=== PATIENT | female | born 1990 | race Hispanic/Latino ===

== ENCOUNTER 2020-01-13 06:20 | Emergency (ER) | payer OTHER ==
[2020-01-13] MEDS ORDERED: IBUPROFEN 200 MG TAB PO ONE (07:02)
[2020-01-13] MEDS ORDERED: IBUPROFEN 400 MG TAB ONE (07:03)
[2020-01-13 07:38] LABS: Urine Blood TRACE (NEG); Urine Glucose NEGATIVE (NEG); Urine Protein 1+ (NEG); Urine Specific Gravity >1.030 (1.005-1.030)
--- NOTE | 2020-01-13 08:13 | EDPHYS ---
Physician Documentation [facility] Name: Ramona Sanchez Age: 29 yrs Sex: Female : 1990 Arrival Date: 01/13/2020 Time: 06:26 Bed 17 Private MD: CHANTELLE Physician Abdirahman Martins HPI: 01/12 07:00 This 29 yrs old Female presents to ER via Ambulatory with complaints of Sore cp Throat, Headache, Fever. 07:00 The patient presents with sore throat. Onset: The symptoms/episode began/occurred cp yesterday. Associated signs and symptoms: Pertinent positives: flu-like symptoms, myalgias, headache, Pertinent negatives chest pain, cough, diarrhea, vomiting, abdominal pain. Historical: - Allergies: 06:37 No Known Allergies; sg - PMHx: 06:37 Seasonal Allergies; sg - PSHx: 06:37 D \T\ C; sg - Immunization history:: Adult Immunizations not up to date. - Social history:: Smoking status: Patient denies any tobacco usage or history of. ROS: 07:01 Eyes: Negative for injury, pain, redness, and discharge. cp 07:01 Constitutional: Positive for body aches, fever, Negative for poor PO intake. 07:01 ENT: Positive for sore throat, Negative for ear pain, difficulty swallowing, difficulty handling secretions. 07:01 Cardiovascular: Negative for chest pain. 07:01 Respiratory: Negative for cough, shortness of breath, wheezing. 07:01 Abdomen/GI: Negative for abdominal pain, nausea, vomiting, and diarrhea. 07:01 Neuro: Positive for headache, Negative for altered mental status, weakness. 07:01 All other systems are negative. Exam: 07:02 Head/Face: Normocephalic, atraumatic. cp 07:02 Constitutional: The patient appears in no acute distress, alert, awake, non-toxic, well developed, well nourished, febrile. 07:02 Eyes: Periorbital structures: appear normal, Conjunctiva: normal, no exudate, no injection, Lids and lashes: appear normal, bilaterally. 07:02 ENT: External ear(s): are unremarkable, Nose: is normal, Mouth: Lips: moist, Oral mucosa: moist, Posterior pharynx: Airway: no evidence of obstruction, patent, Tonsils: with erythema, no enlargement, no exudate, swelling, is not appreciated, erythema, that is mild, exudate, is not appreciated. 07:02 Neck: ROM/movement: is normal, is supple, no meningismus, no nuchal rigidity, Lymph nodes: no appreciated lymphadenopathy. 07:02 Chest/axilla: Inspection: normal, Palpation: is normal, no crepitus, no tenderness. 07:02 Cardiovascular: Rate: normal, Rhythm: regular. 07:02 Respiratory: the patient does not display signs of respiratory distress, Respirations: normal, no use of accessory muscles, no retractions, labored breathing, is not present, Breath sounds: are clear throughout, no decreased breath sounds, no stridor, no wheezing. 07:02 Abdomen/GI: Exam negative for discomfort, distension, guarding, Inspection: abdomen appears normal. Vital Signs: 06:39 BP 113 / 83; Pulse 96; Resp 18; Temp 100.8(O); Pulse Ox 99% on R/A; Pain 6/10; ch2 07:20 Temp 99.1; jl7 MDM: 06:36 Patient medically screened. cp 07:04 Differential diagnosis: epiglottitis, group A strep tonsillitis, influenza, cp peritonsillar abscess pharyngitis, retropharyngeal abcess tonsillitis, tracheobronchitis, upper respiratory infection, uvulitis. 08:13 Data reviewed: vital signs, nurses notes, lab test result(s). cp 08:13 Counseling: I had a detailed discussion with the patient and/or guardian regarding: the cp historical points, exam findings, and any diagnostic results supporting the discharge/admit diagnosis, lab results, to return to the emergency department if symptoms worsen or persist or if there are any questions or concerns that arise at home. 01/12 06:51 Order name: COVID-19; Complete Time: 18:00 cp 01/12 06:51 Order name: Flu; Complete Time: 18:00 cp 01/12 06:51 Order name: Strep; Complete Time: 18:00 cp 01/12 07:33 Order name: Urine Dipstick--Ancillary (enter results); Complete Time: 07:50 bd 01/12 07:50 Interpretation: Normal except: UBLD TRACE; UPROT 1+; UESTR 1+. cp 01/12 07:33 Order name: Urine --Ancillary (enter results); Complete Time: 07:50 bd 01/12 07:50 Interpretation: Normal except: USPGR >1.030. 01/12 08:04 Order name: Throat Culture [facility] 01/12 06:51 Order name: Droplet/Contact Precautions; Complete Time: 07:35 cp 01/12 06:51 Order name: Labs collected and sent; Complete Time: 07:35 cp 01/12 06:51 Order name: O2 Per Protocol; Complete Time: 07:35 cp 01/12 06:51 Order name: Urine Dipstick-Ancillary (obtain specimen); Complete Time: 07:34 cp 01/12 06:51 Order name: Urine Test (obtain specimen); Complete Time: 07:34 cp Administered Medications: 07:34 Not Given (Patient Refused): Ibuprofen 600 mg PO once jl7 Disposition: 01/13/20 08:13 Discharged to Home. Impression: Acute pharyngitis, Headache, Fever presenting with conditions classified elsewhere. - Condition is Stable. - Discharge Instructions: Sore Throat, General Headache Without Cause, [id number], Fever, Adult, [id number]. - Work release form, Medication Reconciliation Form, Thank You Letter, Antibiotic Education, Prescription Opioid Use form. - Follow up: Private Physician; When: 2 - 3 days; Reason: Worsening of condition. - Problem is new. - Symptoms have improved. - Notes: Patient needs to self quarantine with family until results of COVID-19 testing are known Addendum: 01/14/2020 09:37 Co-signature as Attending Physician, Abdirahman Martins MD I agree with the assessment and c alonzo plan of care. 18:07 Addendum: Pt contacted at 1807, explained positive COVID test and questions answered. r n Feeling better, recommended field representatives director consultation regarding child exposure, is going to quarantine for 14 days. . Signatures: Dispatcher [employer] [facility] Cayetano Mclean, RN Abdirahman Haq MD MD cha Nieto, Roman, MD MD rn Page, Corey, PA PA cp Leal, Jahala, RN RN jl7 Corrections: (The following items were deleted from the chart) 01/12 08:24 08:13 01/13/2020 08:13 Discharged to Home. Impression: Acute pharyngitis; Headache; jl7 Fever presenting with conditions classified elsewhere. Condition is Stable. Forms are Medication Reconciliation Form, Thank You Letter, Antibiotic Education, Prescription Opioid Use. Follow up: Private Physician; When: 2 - 3 days; Reason: Worsening of condition. Problem is new. Symptoms have improved. cp
--- NOTE | 2020-01-13 08:13 | ER ---
Nurse's Notes [facility] Name: Ramona Sanchez Age: 29 yrs Sex: Female : 1990 Arrival Date: 01/13/2020 Time: 06:26 Bed 17 Private MD: Diagnosis: Acute pharyngitis;Headache;Fever presenting with conditions classified elsewhere Presentation: 01/12 06:30 Chief complaint: Patient states: My oral thermometer at home was reading 103, I have sg had sore throat, body aches, and a headache that began yesterday, not feeling any better this morning. Coronavirus screen: Patient reports a cough. Patient reports a measured and/or subjective temperature greater than 100.4F. Ebola Screen: Patient negative for fever greater than or equal to 101.5 degrees Fahrenheit, and additional compatible Ebola Virus Disease symptoms Patient denies exposure to infectious person. Patient denies travel to an Ebola-affected area in the 21 days before illness onset. No symptoms or risks identified at this time. Initial Sepsis Screen: Does the patient meet any 2 criteria? No. Patient's initial sepsis screen is negative. Does the patient have a suspected source of infection? No. Patient's initial sepsis screen is negative. Risk Assessment: Do you want to hurt yourself or someone else? Patient reports no desire to harm self or others. Onset of symptoms was January 13, 2020. Care prior to arrival: None. Transition of care: patient was not received from another setting of care. 06:30 Method Of Arrival: Ambulatory 06:30 Acuity: MACHELLE 4 sg Triage Assessment: 06:37 General: Appears in no apparent distress. well groomed, well developed, well nourished, sg Behavior is calm, cooperative, appropriate for age. Pain: Denies pain. EENT: Reports pain when swallowing. Historical: - Allergies: 06:37 No Known Allergies; sg - PMHx: 06:37 Seasonal Allergies; sg - PSHx: 06:37 D \T\ C; sg - Immunization history:: Adult Immunizations not up to date. - Social history:: Smoking status: Patient denies any tobacco usage or history of. Screenin:46 Abuse screen: Denies threats or abuse. Denies injuries from another. Nutritional ch2 screening: No deficits noted. Tuberculosis screening: No symptoms or risk factors identified. Fall Risk None identified. No fall in past 12 months (0 pts). No secondary diagnosis (0 pts). No IV (0 pts). Ambulatory Aid- None/Bed Rest/Nurse Assist (0 pts). Gait- Normal/Bed Rest/Wheelchair (0 pts) Mental Status- Oriented to own ability (0 pts). Assessment: 06:42 General: Appears in no apparent distress. comfortable, ill, well groomed, well ch2 developed, well nourished, Behavior is calm, cooperative, appropriate for age, Smells of Reports chills for fever for feeling ill for fatigue for. Pain: Complains of pain in headache Pain currently is 7 out of 10 on a pain scale. Quality of pain is described as Is intermittent. Neuro: No deficits noted. Level of Consciousness is awake, alert, obeys commands, Oriented to person, place, time, situation, Appropriate for age [employer] are equal bilaterally Moves all extremities. Full function Gait is steady, Speech is normal, Pupils are PERRLA, Cardiovascular: No deficits noted. Reports Denies chest pain, nausea, syncope, vomiting. Respiratory: No deficits noted. Reports shortness of breath on exertion since today cough that is productive, Airway is patent Trachea Respiratory effort is even, unlabored, Respiratory pattern is regular, symmetrical, Sputum is Breath sounds are clear bilaterally. GI: No deficits noted. No signs and/or symptoms were reported involving the gastrointestinal system. : No deficits noted. No signs and/or symptoms were reported regarding the genitourinary system. EENT:. Derm: Skin is intact, is healthy with good turgor, Skin is dry, Skin is pink, warm \T\ dry. normal, Skin temperature is warm face flushed. Musculoskeletal: No deficits noted. No signs and/or symptoms reported regarding the musculoskeletal system. Circulation, motion, and sensation intact. Range of motion:. 07:20 Reassessment: Patient appears in no apparent distress at this time. No changes from jl7 previously documented assessment. Patient and/or family updated on plan of care and expected duration. Pain level reassessed. Patient is alert, oriented x 3, equal unlabored respirations, skin warm/dry/pink. Pt's temp is 99.1 orally, refuses ibuprofen at this time. Vital Signs: 06:39 BP 113 / 83; Pulse 96; Resp 18; Temp 100.8(O); Pulse Ox 99% on R/A; Pain 6/10; ch2 07:20 Temp 99.1; jl7 ED Course: 06:26 Patient arrived in ED. ag3 06:27 Abdirahman Null PA is PHCP. cp 06:27 Abdirahman Martins MD is Attending Physician. cp 06:36 Triage completed. sg 06:36 Arm band placed on. sg 06:46 Patient has correct armband on for positive identification. Bed in low position. Pulse ch2 ox on. NIBP on. 07:04 Arlet Oquendo, RN is Primary Nurse. jl7 07:20 Urine collected: clean catch specimen, cloudy, Flu and/or RSV swab sent to lab. Strep jl7 swab sent to lab. COVID-19 swab sent to lab. 07:54 Awaiting lab results. jl7 08:11 Throat Culture Sent. jl7 08:23 No provider procedures requiring assistance completed. Patient did not have IV access jl7 during this emergency room visit. Administered Medications: 07:34 Not Given (Patient Refused): Ibuprofen 600 mg PO once jl7 Outcome: 08:13 Discharge ordered by . cp 08:23 Discharged to home ambulatory. jl7 08:23 Condition: stable 08:23 Discharge instructions given to patient, Instructed on discharge instructions, follow up and referral plans. Demonstrated understanding of instructions, follow-up care. 08:24 Patient left the ED. jl7 Signatures: aCyetano Mclean, RN Abdirahman Avalos PA PA cp Leal, Jahala, RN CHARO jl7 Aviva Cedeno RN RN [facility] Keke Eisenberg ag3
[2020-01-13 08:30] VITALS: BP 113/83; O2SAT 99
[2020-01-13 08:31] VITALS: TEMP 99.1
== END 2020-01-13 08:24 | disposition home or self-care (01) ==
LOC: ER 06:20
DX: U07.1 COVID-19 (principal); J02.9 Acute pharyngitis, unspecified; R51 Headache
CPT/HCPCS: 87070; 81025; 87081; 81003; 87804 ×2; 99283; U0001